=== PATIENT | female | born 1955 | race Caucasian/White ===

== ENCOUNTER 2019-06-23 08:47 | Inpatient (IN) | payer OTHER ==
--- NOTE | 2019-06-23 08:53 | PDOC ---
History of Present Illness - General Stated Complaint: BLOODY DIARRHEA Time Seen by Provider: 06/23/19 08:53 History Source: Patient Exam Limitations: No Limitations - History of Present Illness Initial Comments: 63 year old female with PMH ulcerative colitis, chronic arthritis presented to ED for LLQ pain/Bloody diarrhea since 0200 today. Pt reported she believes her symptoms are 2/2 an UC flare up, and she tried to hydrate at home, but started vomiting and called EMS. Pt reported her LLQ pain is constant, cramping, no alleviating or aggravating factors. Pt reported she had many episodes of diarrhea, and when she stands up from the toilet she begins to feel lightheaded. She denied syncope or fall. She reported she takes percocet for her chronic arthritis. ROS General: denied fever, chills, generalized weakness. HEENT: denied sore throat, rhinorrhea, ear pain. Cardiovascular: admitted to presyncope. denied chest pain, palpitations, syncope , diaphoresis. Respiratory: denied shortness of breath, cough, sputum production, hemoptysis. Gastrointestinal: admitted to abdominal pain, nausea, vomiting, diarrhea, blood in stool. denied constipation. Genitourinary: denied dysuria, increased urinary frequency, hematuria, urinary incontinence, flank pain. Back: denied back pain. Musculoskeletal: denied joint pain, muscle pain, joint swelling. Neurological: denied headache, dizziness, numbness, tingling, weakness. Integumentary: denied rash, laceration, abrasion. Hematologic/Lymphatic: denied bruising or bleeding. PE Constitutional: Well-nourished, Well-developed, appearing stated age. appears in pain. pale. HEENT: head is normocephalic, atraumatic. EOMI. PERRLA. Neck: supple. Full ROM. Cardiovascular: regular heart rhythm. no murmurs. no pericardial friction rub. Respiratory: clear to auscultation bilaterally. no crackles, rhonchi or wheezing. no stridor. Gastrointestinal: soft, diffuse tenderness to palpation, worst in the LLQ. normal bowel sounds. no rebound, guarding, masses. Extremities: peripheral pulses intact. no lower extremity edema. Neurological: CN 2-12 grossly intact. moves all four extremities. Psych: awake, alert, oriented x3. follows commands. answers questions appropriately Past History - Past Medical History Allergies/Adverse Reactions: Allergies Allergy/AdvReac Type Severity Reaction Status Date / Time No Known Allergies Allergy Verified 06/23/19 09:07 Home Medications: Ambulatory Orders Alprazolam 0.125 mg PO HS 06/23/19 Lipase/Protease/Amylase [Zenpep Dr 25,000 Unit Capsule] 1 each PO TID 06/23/19 Lisinopril [Zestril] 40 mg PO DAILY 06/23/19 Mesalamine [Asacol Hd -] 800 mg PO TID 06/23/19 Oxycodone HCl/Acetaminophen [Oxycodone-Acetaminophen 10-325] 1 each PO PRN 06/23 traZODone HCL [Trazodone HCl] 100 mg PO HS 06/23/19 ED Treatment Course - LABORATORY CBC & Chemistry Diagram: 06/23/19 09:20 06/23/19 09:20 Medical Decision Making - Medical Decision Making 63 year old female with above PMH presented to ED for acute LLQ pain, blood diarrhea, nausea/vomiting, presyncope. EMS reported they gave Zofran 4 mg IV once, and started 1L normal saline bolus. Initial Vital Signs Temp Pulse Resp BP Pulse Ox 97.9 F 91 H 18 109/81 99 06/23/19 09:03 06/23/19 09:03 06/23/19 09:03 06/23/19 09:03 06/23/19 09:03 Afebrile. Mild hypotension. No tachycardia. No tachypnea. No hypoxia on room air. Labs ordered: CBC, CMP, mag, phos, blood cultures, UA/UC, lactate, stool for blood Imaging ordered: CXR, CT abdomen/pelvis with IV and PO contrast Medications ordered: normal saline bolus 1000 cc once, tylenol IV EKG performed at 0852: poor quality 2/2 pt motion. regular rhythm. normal axis. rate 84. no acute ST changes noted. 06/23/19 09:37 06/23/19 09:07 Stool Occult Blood Positive 06/23/19 10:42 CBC WBC 11.7 K/mm3 (4.0-10.0) H 06/23/19 09:20 RBC 4.11 M/mm3 (3.60-5.2) 06/23/19 09:20 Hgb 13.1 GM/dL (10.7-15.3) 06/23/19 09:20 Hct 40.1 % (32.4-45.2) D 06/23/19 09:20 MCV 97.6 fl (80-96) H 06/23/19 09:20 MCH 31.9 pg (25.7-33.7) 06/23/19 09:20 MCHC 32.7 g/dl (32.0-36.0) 06/23/19 09:20 RDW 13.7 % (11.6-15.6) 06/23/19 09:20 Plt Count 210 K/MM3 (134-434) 06/23/19 09:20 MPV 8.5 fl (7.5-11.1) 06/23/19 09:20 Absolute Neuts (auto) 10.3 K/mm3 (1.5-8.0) H 06/23/19 09:20 Neutrophils % 87.5 % (42.8-82.8) H 06/23/19 09:20 Lymphocytes % 5.9 % (8-40) L 06/23/19 09:20 Monocytes % 6.0 % (3.8-10.2) 06/23/19 09:20 Eosinophils % 0.2 % (0-4.5) 06/23/19 09:20 Basophils % 0.4 % (0-2.0) 06/23/19 09:20 Nucleated RBC % 0 % (0-0) 06/23/19 09:20 CMP Sodium 142 mmol/L (136-145) 06/23/19 09:20 Potassium 3.9 mmol/L (3.5-5.1) 06/23/19 09:20 Chloride 110 mmol/L (98-107) H 06/23/19 09:20 Carbon Dioxide 24 mmol/L (21-32) 06/23/19 09:20 Anion Gap 8 MMOL/L (8-16) 06/23/19 09:20 BUN 20.1 mg/dL (7-18) H 06/23/19 09:20 Creatinine 1.1 mg/dL (0.55-1.3) 06/23/19 09:20 Est GFR (CKD-EPI)AfAm 61.01 06/23/19 09:20 Est GFR (CKD-EPI)NonAf 52.64 06/23/19 09:20 Random Glucose 125 mg/dL (74-106) H 06/23/19 09:20 Lactic Acid 2.5 mmol/L (0.4-2.0) H* 06/23/19 09:20 Calcium 9.4 mg/dL (8.5-10.1) 06/23/19 09:20 Phosphorus 3.1 mg/dL (2.5-4.9) 06/23/19 09:20 Magnesium 2.3 mg/dL (1.8-2.4) 06/23/19 09:20 Total Bilirubin 0.5 mg/dL (0.2-1) 06/23/19 09:20 AST 42 U/L (15-37) H 06/23/19 09:20 ALT 49 U/L (13-61) 06/23/19 09:20 Alkaline Phosphatase 168 U/L (45-117) H 06/23/19 09:20 Troponin I 0.03 ng/ml (0.00-0.05) 06/23/19 09:20 Total Protein 7.0 g/dl (6.4-8.2) 06/23/19 09:20 Albumin 3.9 g/dl (3.4-5.0) 06/23/19 09:20 Lipase 104 U/L (73-393) 06/23/19 09:20 Lab reported lactate 2.5 -Additional 1L normal saline ordered Pt reported no pain relief with IV Tylenol, last BP 117/43 Medication ordered: Fentanyl 25 mcg once CXR report: Name: [facility] Phys: Keshia Estes RESIDENT : [id number] Age: 63 Sex: F [facility] Acct: [id number] Loc: [address] Exam Date: 06/23/19 Status: REG [place] [id number] Unit Number: [id number] EXAM#: TYPE/EXAM: RESULT: [id number] RAD/CHEST X-RAY PORTABLE* Chest: Sepsis A single AP view of the chest reveals clear well aerated lungs, normal mediastinum and sharp angles. The bones and soft tissues are intact. There are no prior studies for comparison. Impression: No acute chest pathology. Reported By: Elroy Messina MD 06/23/19 1110 06/23/19 12:59 CT report: Name: [facility] Phys: Zachary Naranjo MD : [id number] Age: 63 Sex: F [facility] Acct: [id number] Loc: [address] Exam Date: 06/23/19 Status: [place] [address] Unit Number: [id number] EXAM#: TYPE/EXAM: RESULT: [id number] CT/ABDOMEN PELVIS CT WITH CONTR INDICATION: Ulcerative colitis with abdominal pain TECHNIQUE: Helical images of the abdomen and pelvis obtained with oral and 90 cc Omnipaque 350 IV . COMPARISON IMAGING:None FINDINGS : LUNG BASES:Mild dependent atelectasis seen. LIVER: Negative. GALLBLADDER: Negative. BILIARY DUCTS: Negative. PANCREAS: Negative. SPLEEN: Negative. ADRENALS: Negative. KIDNEYS: Tiny cysts noted lower pole of the right kidney. AORTA: Calcified plaque. No aneurysm. LYMPH NODES: Negative. BOWEL: Oral contrast reaches the transverse colon. There is no evidence of bowel obstruction. Postsurgical clips noted in the region of the cecum suggesting prior appendectomy. Colonic wall thickening is noted starting in the mid transverse colon and extending to the sigmoid colon suggesting colitis. There is no evidence of pneumatosis. No proximal obstruction is seen. No free air/ fluid is identified. No diverticular disease present. PELVIS: The bladder is physiologically distended. The uterus is identified. Possible fundal fibroid is noted measuring 3.2 cm which could be further assessed with ultrasound imaging. OTHER: No aggressive bone lesions seen. Discogenic disease identified. Spondylotic changes are noted. IMPRESSION: COLITIS INVOLVING FROM THE MID TRANSVERSE COLON TO THE DISTAL SIGMOID COLON DISCUSSED ABOVE. NO PNEUMATOSIS IDENTIFIED. NO DRAINABLE FLUID COLLECTIONS ARE SEEN. FOLLOW-UP COLONOSCOPY AFTER THE ACUTE EVENT IS RECOMMENDED. Probable uterine fibroid which could be corroborated with ultrasound imaging as clinically warranted. Additional comments noted above. Reported By: Manuel Mares MD 06/23/19 1246 06/23/19 13:08 Dr. Frank's office paged, they reported that Dr. Dior is learning operations specialist for ED today from their group, but they do not have the number. I called Dr. Dior's office, they reported they will page her. 06/23/19 13:28 Pt signed out to Dr. Dior. Medications ordered: Levaquin 750 mg IV once, Flagyl 500 mg IV once 06/23/19 14:31 Repeat Lactate 2.0 Pt in pain. Medications ordered: Fentanyl 25 mcg once Discharge - Discharge Information Problems reviewed: Yes Clinical Impression/Diagnosis: Ulcerative colitis, Lactic acidosis Condition: Stable - Admission Yes - Follow up/Referral - Patient Discharge Instructions - Post Discharge Activity
[2019-06-23] MEDS ORDERED: ONDANSETRON 4 MG/2 ML VIAL ONE (09:00)
[2019-06-23] MEDS ORDERED: fentaNYL CITRATE 250 MCG/5 ML VIAL IVPUSH ONE ×3 (09:16→14:00)
[2019-06-23] MEDS ORDERED: ACETAMINOPHEN 1000 MG/100 ML VIAL (NON FORMULARY) IVPB ONE (09:18)
[2019-06-23] MEDS ORDERED: ACETAMINOPHEN INJECTION 100 ML IVPB ONE (09:36)
[2019-06-23 09:42] LABS: BASO % 0.4 % (0-2.0); EOS % 0.2 % (0-4.5); HEMATOCRIT 40.1 % (32.4-45.2); HEMOGLOBIN 13.1 GM/dL (10.7-15.3); LYMPH % 5.9 % (8-40); MCH 31.9 pg (25.7-33.7); MCHC 32.7 g/dl (32.0-36.0); MEAN CELL VOLUME 97.6 fl (80-96); MEAN PLT VOLUME 8.5 fl (7.5-11.1); NEUT % 87.5 % (42.8-82.8); PLATELET COUNT 210 K/MM3 (134-434); RBC 4.11 M/mm3 (3.60-5.2); RDW 13.7 % (11.6-15.6); WHITE BLOOD COUNT 11.7 K/mm3 (4.0-10.0)
[2019-06-23 09:51] LABS: INR 1.02 (0.83-1.09)
[2019-06-23 09:53] LABS: VENOUS PH 7.26 (7.31-7.41)
[2019-06-23 09:59] LABS: VENOUS PO2 < 49 mmHg (28-48)
[2019-06-23 10:14] LABS: ALBUMIN 3.9 g/dl (3.4-5.0); BILIRUBIN,TOTAL 0.5 mg/dL (0.2-1); BLOOD UREA NITROGEN 20.1 mg/dL (7-18); CALCIUM 9.4 mg/dL (8.5-10.1); CREATININE 1.1 mg/dL (0.55-1.3); PHOSPHOROUS 3.1 mg/dL (2.5-4.9); POTASSIUM 3.9 mmol/L (3.5-5.1)
[2019-06-23] MEDS ORDERED: SODIUM CHLORIDE 1,000 ML IV STA (10:42)
--- NOTE | 2019-06-23 14:51 | HP ---
Admitting History and Physical - Admission Chief Complaint: cramping abdominal pain and bloody stools History of Present Illness: 63 year old female with PMH ulcerative colitis, chronic arthritis presented to ED for LLQ pain/Bloody diarrhea since 0200 today. Pt reported she believes her symptoms are 2/2 an UC flare up, and she tried to hydrate at home, but started vomiting and called EMS. Pt reported her LLQ pain is constant, cramping, no alleviating or aggravating factors. Pt reported she had many episodes of diarrhea, and when she stands up from the toilet she begins to feel lightheaded. She denied syncope or fall. She reported she takes percocet for her chronic arthritis. - Smoking History Smoking history: Never smoked - Alcohol/Substance Use Hx Alcohol Use: No Home Medications - Allergies Allergies/Adverse Reactions: Allergies Allergy/AdvReac Type Severity Reaction Status Date / Time No Known Allergies Allergy Verified 06/23/19 09:07 - Home Medications Home Medications: Ambulatory Orders Alprazolam 0.125 mg PO HS 06/23/19 Lipase/Protease/Amylase [Zenpep Dr 25,000 Unit Capsule] 1 each PO TID 06/23/19 Lisinopril [Zestril] 40 mg PO DAILY 06/23/19 Mesalamine [Asacol Hd -] 800 mg PO TID 06/23/19 Oxycodone HCl/Acetaminophen [Oxycodone-Acetaminophen 10-325] 1 each PO PRN 06/23 traZODone HCL [Trazodone HCl] 100 mg PO HS 06/23/19 Review of Systems - Review of Systems Gastrointestinal: reports: Abdominal Pain, Other (bloody lose bm) Physical Examination Vital Signs: Vital Signs Temperature 99.3 F 06/23/19 13:12 Pulse Rate 88 06/23/19 13:12 Respiratory Rate 17 06/23/19 13:12 Blood Pressure 105/64 06/23/19 13:12 O2 Sat by Pulse Oximetry (%) 98 06/23/19 13:12 Constitutional: Yes: Mild Distress Cardiovascular: Yes: Regular Rate and Rhythm, S1, S2 Respiratory: Yes: CTA Bilaterally Gastrointestinal: Yes: Tenderness (in LLQ) Edema: No Neurological: Yes: Alert Labs: CBC, BMP 06/23/19 09:20 06/23/19 09:20 Imaging - Results Cat Scan: Report Reviewed (colitis of mid tranverse to the distal sigmoid colon) Problem List - Problems (1) Ulcerative colitis Assessment/Plan: ivf solumedrol q8rh flagyl rocephin stool cultures,OP, c diff- r/o infectious vs UC flare GI consult pain control Code(s): K51.90 - ULCERATIVE COLITIS, UNSPECIFIED, WITHOUT COMPLICATIONS (2) Lactic acidosis Assessment/Plan: resolved with hydration Code(s): E87.2 - ACIDOSIS
[2019-06-23] MEDS ORDERED: CEFTRIAXONE 1 GM in DEXTROSE 5%-WATER - 50 ML IVPB ONE (14:54)
[2019-06-23] MEDS ORDERED: ACETAMINOPHEN 1000 MG/100 ML VIAL (NON FORMULARY) IVPB PRN (15:01)
--- NOTE | 2019-06-23 15:39 | PDOC ---
Attending Attestation - Resident Resident Name: Keshia Estes - ED Attending Attestation I have performed the following: I have examined & evaluated the patient, The case was reviewed & discussed with the resident, I agree w/resident's findings & plan, Exceptions are as noted - HPI HPI: 06/23/19 15:35 63 year old female with PMH ulcerative colitis, chronic arthritis presented to ED with left-sided abdominal discomfort associated with bloody diarrhea symptoms are consistent with previous uc flares - Physicial Exam PE: 06/23/19 15:36 Vitals: Triage Vital signs reviewed General Appearance: Mild distress, well nourished well developed, Head: Atraumatic, Chest Wall: Nontender Cardiac: Regular rate and rhythym, no murmurs, no rubs, no gallops, Lungs: Clear to auscultation bilateral, good air movement bilaterally, Abdomen: Soft, non distended, normal bowel sounds, left-sided abdominal tender to palpation Extremities: Full range of motion to all extremities, no cyanosis, clubbing, or edema Skin: Warm and dry, no rashes or lesions, no rash, no petechiae Psych: Normal mood, normal affect - Medical Decision Making 06/23/19 15:[address] evidence of Crohn's flare. Given bloody bowel movements and elevated lactic there is evidence of hypoperfusion patient will require admission for IV antibiotics hydration and further management as well as GI consultation
[2019-06-23] MEDS ORDERED: cefTRIAXone SODIUM 1 GM VIAL ONE (18:08)
[2019-06-23] MEDS ORDERED: DEXTROSE 5%-WATER - 50 ML IVPB ONE (18:09)
[2019-06-23] MEDS: SODIUM CHLORIDE 1,000 ML IV SCH (18:30)
[2019-06-23] MEDS: methylPREDNISolone NA SUCC 40 MG/1 ML VIAL IVPUSH SCH (18:31)
[2019-06-23] MEDS ORDERED: traMADol HCL 50 MG TABLET PO ONE (20:05)
[2019-06-24] MEDS: ACETAMINOPHEN 325 MG TABLET (FP) PO PRN ×2 (02:20→13:06)
[2019-06-24] MEDS: methylPREDNISolone NA SUCC 40 MG/1 ML VIAL IVPUSH SCH ×3 (02:20→17:16)
[2019-06-24 03:07] LABS: URINE APPEARANCE CLEAR; URINE BILIRUBIN NEGATIVE (NEGATIVE); URINE COLOR YELLOW; URINE GLUCOSE (UA) NEGATIVE (NEGATIVE); URINE KETONE TRACE (NEGATIVE); URINE LEUK ESTERASE NEGATIVE (NEGATIVE); URINE NITRITE NEGATIVE (NEGATIVE); URINE PROTEIN NEGATIVE (NEGATIVE); URINE UROBILINOGEN 0.2 mg/dL (0.2-1.0)
[2019-06-24] MEDS: traMADol HCL 50 MG TABLET PO PRN ×3 (06:27→20:42)
[2019-06-24] MEDS: SODIUM CHLORIDE 1,000 ML IV SCH ×3 (06:28→17:17)
--- NOTE | 2019-06-24 07:38 | PN ---
Progress Note, Physician Chief Complaint: Ulcerative Colitis History of Present Illness: NAD, feels better than yesterday still has some abdominal pain Diarrhea once this AM with tarry stool tolerating clear liquid diet - Current Medication List Current Medications: Active Medications Acetaminophen (Tylenol -) 650 mg PO Q6H PRN PRN Reason: PAIN LEVEL 1-5 Last Admin: 06/24/19 02:20 Dose: 650 mg Sodium Chloride (Normal Saline -) 1,000 mls @ 100 mls/hr IV ASDIR LUIS Last Admin: 06/24/19 06:28 Dose: 100 mls/hr Metronidazole (Flagyl 500mg Premixed Ivpb -) 500 mg in 100 mls @ 100 mls/hr IVPB Q8H-IV LUIS Last Admin: 06/24/19 02:21 Dose: 100 mls/hr Ceftriaxone Sodium 1 gm/ (Dextrose) 50 mls @ 200 mls/hr IVPB DAILY [facility]; Protocol Methylprednisolone Sodium Succinate (Solu-Medrol -) 40 mg IVPUSH Q8H-IV LUIS Last Admin: 06/24/19 02:20 Dose: 40 mg Tramadol HCl (Ultram -) 50 mg PO Q6H PRN PRN Reason: PAIN LEVEL 6-10 Last Admin: 06/24/19 06:27 Dose: 50 mg - Objective Vital Signs: Vital Signs Temperature 98.1 F 06/24/19 06:00 Pulse Rate 90 06/24/19 06:00 Respiratory Rate 18 06/24/19 06:00 Blood Pressure 123/67 06/24/19 06:00 O2 Sat by Pulse Oximetry (%) 96 06/23/19 21:00 Constitutional: Yes: Well Nourished, No Distress, Calm Cardiovascular: Yes: Regular Rate and Rhythm Respiratory: Yes: Regular Gastrointestinal: Yes: Soft, Hyperactive Bowel Sounds, Tenderness (LLQ,LUQ) Genitourinary: Yes: WNL Musculoskeletal: Yes: WNL Extremities: Yes: WNL Edema: No Peripheral Pulses WNL: Yes Neurological: Yes: Alert, Oriented Psychiatric: Yes: Alert, Oriented Labs: INR, PTT INR 1.02 (0.83-1.09) 06/23/19 09:20 Assessment/Plan (1) Ulcerative colitis Assessment/Plan: -Continue IVF -solumedrol q8rh -flagyl IV -rocephin IV -stool cultures,OP, c diff- r/o infectious vs UC flare-pending -GI consult -pain control Code(s): K51.90 - ULCERATIVE COLITIS, UNSPECIFIED, WITHOUT COMPLICATIONS (2) Lactic acidosis Assessment/Plan: -resolved with hydration Code(s): E87.2 - ACIDOSIS
[2019-06-24 08:08] LABS: HEMATOCRIT 33.9 % (32.4-45.2); HEMOGLOBIN 11.5 GM/dL (10.7-15.3); MCH 32.8 pg (25.7-33.7); MCHC 33.8 g/dl (32.0-36.0); MEAN CELL VOLUME 97.1 fl (80-96); MEAN PLT VOLUME 8.7 fl (7.5-11.1); PLATELET COUNT 173 K/MM3 (134-434); RBC 3.49 M/mm3 (3.60-5.2); RDW 13.5 % (11.6-15.6); WHITE BLOOD COUNT 8.1 K/mm3 (4.0-10.0)
[2019-06-24 08:36] LABS: ALBUMIN 3.4 g/dl (3.4-5.0); BILIRUBIN,TOTAL 0.4 mg/dL (0.2-1); BLOOD UREA NITROGEN 13.6 mg/dL (7-18); CALCIUM 8.7 mg/dL (8.5-10.1); CREATININE 0.7 mg/dL (0.55-1.3); MAGNESIUM 2.3 mg/dL (1.8-2.4); PHOSPHOROUS 3.5 mg/dL (2.5-4.9); POTASSIUM 4.3 mmol/L (3.5-5.1); TOT PROT 6.3 g/dl (6.4-8.2)
[2019-06-24] MEDS ORDERED: DEXTROSE 5%-WATER - 50 ML IVPB ONE (10:50)
[2019-06-24] MEDS ORDERED: cefTRIAXone SODIUM 1 GM VIAL ONE (10:50)
[2019-06-24] MEDS: CEFTRIAXONE 1 GM in DEXTROSE 5%-WATER - 50 ML IVPB SCH (10:55)
[2019-06-24] MEDS: traZODone HCL 100 MG TABLET (FP) PO SCH (21:18)
[2019-06-24] MEDS ORDERED: ALPRAZolam 0.25 MG TABLET PO SCH (22:00)
[2019-06-25] MEDS: methylPREDNISolone NA SUCC 40 MG/1 ML VIAL IVPUSH SCH ×3 (01:32→18:13)
[2019-06-25] MEDS: traMADol HCL 50 MG TABLET PO PRN ×3 (06:10→22:45)
[2019-06-25 07:31] LABS: BASO % 0.1 % (0-2.0); HEMATOCRIT 32.1 % (32.4-45.2); HEMOGLOBIN 10.9 GM/dL (10.7-15.3); LYMPH % 7.7 % (8-40); MCH 32.8 pg (25.7-33.7); MEAN CELL VOLUME 96.3 fl (80-96); MEAN PLT VOLUME 8.7 fl (7.5-11.1); MONO % 3.3 % (3.8-10.2); NEUT % 88.9 % (42.8-82.8); PLATELET COUNT 183 K/MM3 (134-434); RBC 3.33 M/mm3 (3.60-5.2); WHITE BLOOD COUNT 8.3 K/mm3 (4.0-10.0)
[2019-06-25 07:48] LABS: ALBUMIN 3.4 g/dl (3.4-5.0); BILIRUBIN,TOTAL 0.2 mg/dL (0.2-1); BLOOD UREA NITROGEN 12.8 mg/dL (7-18); CALCIUM 8.4 mg/dL (8.5-10.1); CREATININE 0.7 mg/dL (0.55-1.3); POTASSIUM 3.9 mmol/L (3.5-5.1); TOT PROT 6.3 g/dl (6.4-8.2)
[2019-06-25] MEDS ORDERED: cefTRIAXone SODIUM 1 GM VIAL ONE (09:22)
[2019-06-25] MEDS ORDERED: DEXTROSE 5%-WATER - 50 ML IVPB ONE (09:22)
--- NOTE | 2019-06-25 09:24 | PN ---
Progress Note, Physician Chief Complaint: Ulcerative Colitis History of Present Illness: NAD, feels better than yesterday still has some abdominal pain Non bloody stool once this AM, tolerating clear liquid diet - Current Medication List Current Medications: Active Medications Acetaminophen (Tylenol -) 650 mg PO Q6H PRN PRN Reason: PAIN LEVEL 1-5 Last Admin: 06/24/19 13:06 Dose: 650 mg Alprazolam (Xanax -) 0.125 mg PO HS LUIS Last Admin: 06/24/19 21:18 Dose: 0.125 mg Sodium Chloride (Normal Saline -) 1,000 mls @ 100 mls/hr IV ASDIR LUIS Last Admin: 06/24/19 17:17 Dose: 100 mls/hr Metronidazole (Flagyl 500mg Premixed Ivpb -) 500 mg in 100 mls @ 100 mls/hr IVPB Q8H-IV LUIS Last Admin: 06/25/19 01:32 Dose: 100 mls/hr Ceftriaxone Sodium 1 gm/ (Dextrose) 50 mls @ 200 mls/hr IVPB DAILY [facility]; Protocol Last Admin: 06/24/19 10:55 Dose: 200 mls/hr Lisinopril (Prinivil) 5 mg PO DAILY LUIS Methylprednisolone Sodium Succinate (Solu-Medrol -) 40 mg IVPUSH Q8H-IV LUIS Last Admin: 06/25/19 01:32 Dose: 40 mg Tramadol HCl (Ultram -) 50 mg PO Q6H PRN PRN Reason: PAIN LEVEL 6-10 Last Admin: 06/25/19 06:10 Dose: 50 mg Trazodone HCl (Desyrel -) 100 mg PO HS [facility] Last Admin: 06/24/19 21:18 Dose: 100 mg - Objective Vital Signs: Vital Signs Temperature 98.6 F 06/25/19 08:38 Pulse Rate 77 06/25/19 08:38 Respiratory Rate 18 06/25/19 08:38 Blood Pressure 132/64 06/25/19 08:38 O2 Sat by Pulse Oximetry (%) 96 06/24/19 21:00 Constitutional: Yes: Well Nourished, No Distress, Calm Cardiovascular: Yes: Regular Rate and Rhythm Respiratory: Yes: Regular Gastrointestinal: Yes: Normal Bowel Sounds, Soft, Tenderness (diffuse) Genitourinary: Yes: WNL Musculoskeletal: Yes: WNL Extremities: Yes: WNL Edema: No Peripheral Pulses WNL: Yes Neurological: Yes: Alert, Oriented Psychiatric: Yes: Alert, Oriented Labs: CBC, BMP 06/25/19 06:40 06/25/19 06:40 INR, PTT INR 1.02 (0.83-1.09) 06/23/19 09:20 Assessment/Plan (1) Ulcerative colitis Assessment/Plan: -Continue IVF -solumedrol q8rh -flagyl IV -rocephin IV -stool cultures,OP, c diff- r/o infectious vs UC flare-pending -GI consult -pain control -Continue clear liquids for now, may transition to full liquids in AM if pain is improved -Add PPI Code(s): K51.90 - ULCERATIVE COLITIS, UNSPECIFIED, WITHOUT COMPLICATIONS (2) Lactic acidosis Assessment/Plan: -resolved with hydration Code(s): E87.2 - ACIDOSIS
[2019-06-25] MEDS: LISINOPRIL 5 MG TABLET (FP) PO SCH (09:50)
[2019-06-25] MEDS: PANTOPRAZOLE 40 MG TABLET (FP) PO SCH (09:50)
[2019-06-25] MEDS: CEFTRIAXONE 1 GM in DEXTROSE 5%-WATER - 50 ML IVPB SCH (09:51)
[2019-06-25 11:59] VITALS: BMI 20.3
[2019-06-25] MEDS: SODIUM CHLORIDE 1,000 ML IV SCH (16:24)
[2019-06-25] MEDS: ACETAMINOPHEN 325 MG TABLET (FP) PO PRN ×2 (16:24→22:46)
[2019-06-25] MEDS ORDERED: PT OWN MED DRAWER 7, Y5N ONE (18:06)
--- NOTE | 2019-06-25 20:29 | EKG ---
Test Reason : Blood Pressure : / mmHG Vent. Rate : 084 BPM Atrial Rate : 084 BPM P-R Int : 144 ms QRS Dur : 058 ms QT Int : 472 ms P-R-T Axes : 064 065 079 degrees QTc Int : 557 ms POOR DATA QUALITY, INTERPRETATION MAY BE ADVERSELY AFFECTED NORMAL SINUS RHYTHM NONSPECIFIC T WAVE ABNORMALITY ABNORMAL ECG NO PREVIOUS ECGS AVAILABLE Confirmed by TITO CHICAS MD ([id number]) on 06/25/2019 8:28:49 PM Referred By: Confirmed By:TITO CHICAS MD
[2019-06-25] MEDS: traZODone HCL 100 MG TABLET (FP) PO SCH (21:09)
[2019-06-25] MEDS: ALPRAZolam 0.25 MG TABLET PO SCH (21:09)
[2019-06-26] MEDS: methylPREDNISolone NA SUCC 40 MG/1 ML VIAL IVPUSH SCH ×3 (01:03→17:13)
--- NOTE | 2019-06-26 08:33 | CON.GI ---
Consult Consult Specialty:: GI Referred by:: Dr Esperanza Dior Reason for Consultation:: LLQ pain with bloody diarrhea - History of Present Illness History of Present Illness: Patient is a 63 y/o female with past medical history of Uclerative Colitis and Chronic Arthritis. Patient states at 2am on Wednesday she was awakened by a sharp/ throbbing/cramping pain to LLQ after the pain began she states having a BM which was formed. She states as the day progressed her BM changed to non- bloody diarrhea. She denies recent travel, antibiotic use, fever. Abdominal CT scan shows colitis involving from the mild transverse colon to the distal sigmoid colon, no pneumatosis, no drainable fluid collections. Patient has been taking Asacol TID at home as part of medication regimen. - History Source History Provided By: Patient Limitations to Obtaining History: No Limitations - Past Medical History Gastrointestinal: Yes: Ulcerative Colitis ...: No Musculoskeletal: Yes: Osteoarthritis - Alcohol/Substance Use Hx Alcohol Use: No - Smoking History Smoking history: Never smoked If you are a former smoker, when did you quit?: 15 yrs ago - Social History Usual Living Arrangement: With Spouse ADL: Independent History of Recent Travel: No Home Medications - Allergies Allergies/Adverse Reactions: Allergies Allergy/AdvReac Type Severity Reaction Status Date / Time No Known Allergies Allergy Verified 06/23/19 09:07 - Home Medications Home Medications: Ambulatory Orders Alprazolam 0.125 mg PO HS 06/23/19 Lipase/Protease/Amylase [Zenpep Dr 25,000 Unit Capsule] 1 each PO TID 06/23/19 Lisinopril [Zestril] 40 mg PO DAILY 06/23/19 Mesalamine [Asacol Hd -] 800 mg PO TID 06/23/19 Oxycodone HCl/Acetaminophen [Oxycodone-Acetaminophen 10-325] 1 each PO PRN 06/23 traZODone HCL [Trazodone HCl] 100 mg PO HS 06/23/19 Review of Systems - Review of Systems Constitutional: reports: Loss of Appetite, Weakness Eyes: reports: No Symptoms HENT: reports: No Symptoms Neck: reports: No Symptoms Cardiovascular: reports: No Symptoms Respiratory: reports: No Symptoms Gastrointestinal: reports: Abdominal Pain, Diarrhea, Nausea, Rectal Bleeding Genitourinary: reports: No Symptoms Breasts: reports: No Symptoms Reported Musculoskeletal: reports: No Symptoms Integumentary: reports: No Symptoms Neurological: reports: No Symptoms Endocrine: reports: No Symptoms Hematology/Lymphatic: reports: No Symptoms Psychiatric: reports: No Symptoms Physical Exam-GI Vital Signs: Vital Signs Temperature 98 F 06/26/19 07:00 Pulse Rate 97 H 06/26/19 07:00 Respiratory Rate 20 06/26/19 07:00 Blood Pressure 140/71 06/26/19 07:00 O2 Sat by Pulse Oximetry (%) 96 06/25/19 21:00 Constitutional: Yes: No Distress, Calm, Thin Eyes: Yes: Conjunctiva Clear HENT: Yes: Atraumatic Cardiovascular: Yes: Regular Rate and Rhythm Respiratory: Yes: Regular, CTA Bilaterally Gastrointestinal Inspection: Yes: WNL. No: Ascites, Distention, Hernia, Scars, Other ...Auscultate: Yes: Normoactive Bowel Sounds. No: Hyperactive Bowel Sounds, Hypoactive Bowel Sounds, No Bowel Sounds, Other ...Palpate: Yes: Tenderness (diffuse but noted most in LLQ). No: Firm/Rigid, Guarding, Hepatomegaly, Mass, Pulsatile Mass, Soft, Splenomegaly, Tenderness, Epigastium, Tenderness, Rebound, Other ...Percussion: Yes: Tympanitic. No: Dullness, Fluid Wave, Other Neurological: Yes: Alert, Oriented Psychiatric: Yes: Alert, Oriented Labs: CBC, BMP 06/25/19 06:40 06/25/19 06:40 INR, PTT INR 1.02 (0.83-1.09) 06/23/19 09:20 Imaging - Results Cat Scan: Report Reviewed Problem List - Problems (1) Ulcerative colitis Assessment/Plan: >Stool Calpoprectin ordered >started back on Asacol TID >Stool WBC and C-diff neg, stool culture pending >Ceftriaxone and Flagyl >IV hydration >will advance diet to low fiber, lactose free when abdominal pain improves Code(s): K51.90 - ULCERATIVE COLITIS, UNSPECIFIED, WITHOUT COMPLICATIONS
[2019-06-26] MEDS ORDERED: cefTRIAXone SODIUM 1 GM VIAL ONE (09:17)
[2019-06-26] MEDS ORDERED: DEXTROSE 5%-WATER - 50 ML IVPB ONE (09:17)
--- NOTE | 2019-06-26 10:07 | PN ---
Progress Note, Physician Chief Complaint: Ulcerative Colitis History of Present Illness: Previous notes and events reviewed awake and alert NAD complain of LLQ pain improving denies bloody diarrhea - Current Medication List Current Medications: Active Medications Acetaminophen (Tylenol -) 650 mg PO Q6H PRN PRN Reason: PAIN LEVEL 1-5 Last Admin: 06/25/19 22:46 Dose: 650 mg Alprazolam (Xanax -) 0.5 mg PO HS [facility]IS Last Admin: 06/25/19 21:09 Dose: 0.5 mg Sodium Chloride (Normal Saline -) 1,000 mls @ 100 mls/hr IV ASDIR [facility]IS Last Admin: 06/25/19 16:24 Dose: 100 mls/hr Metronidazole (Flagyl 500mg Premixed Ivpb -) 500 mg in 100 mls @ 100 mls/hr IVPB Q8H-IV [facility] Last Admin: 06/26/19 01:03 Dose: 100 mls/hr Ceftriaxone Sodium 1 gm/ (Dextrose) 50 mls @ 200 mls/hr IVPB DAILY [facility]IS; Protocol Last Admin: 06/25/19 09:51 Dose: 200 mls/hr Lisinopril (Prinivil) 5 mg PO DAILY [facility] Last Admin: 06/25/19 09:50 Dose: 5 mg Mesalamine (Asacol Hd -) 800 mg PO TID [facility] Methylprednisolone Sodium Succinate (Solu-Medrol -) 40 mg IVPUSH Q8H-IV [facility]IS Last Admin: 06/26/19 01:03 Dose: 40 mg Pantoprazole Sodium (Protonix -) 40 mg PO DAILY [facility] Last Admin: 06/25/19 09:50 Dose: 40 mg Tramadol HCl (Ultram -) 50 mg PO Q6H PRN PRN Reason: PAIN LEVEL 6-10 Last Admin: 06/25/19 22:45 Dose: 50 mg Trazodone HCl (Desyrel -) 100 mg PO HS [facility] Last Admin: 06/25/19 21:09 Dose: 100 mg - Objective Vital Signs: Vital Signs Temperature 98 F 06/26/19 07:00 Pulse Rate 97 H 06/26/19 07:00 Respiratory Rate 20 06/26/19 07:00 Blood Pressure 140/71 06/26/19 07:00 O2 Sat by Pulse Oximetry (%) 96 06/25/19 21:00 Constitutional: Yes: No Distress, Calm Eyes: Yes: Conjunctiva Clear HENT: Yes: Atraumatic Cardiovascular: Yes: Regular Rate and Rhythm Respiratory: Yes: Regular, CTA Bilaterally Gastrointestinal: Yes: Normal Bowel Sounds, Soft, Tenderness (llq) Musculoskeletal: Yes: Muscle Weakness Extremities: Yes: WNL Edema: No Neurological: Yes: Alert, Oriented Psychiatric: Yes: Alert, Oriented Labs: CBC, BMP 06/25/19 06:40 06/25/19 06:40 INR, PTT INR 1.02 (0.83-1.09) 06/23/19 09:20 Problem List - Problems (1) Arthritis Assessment/Plan: -pain control -ESR 8 Code(s): M19.90 - UNSPECIFIED OSTEOARTHRITIS, UNSPECIFIED SITE (2) Ulcerative colitis Assessment/Plan: -GI on board -IV hydration -Ceftriaxone, Flagyl -Solumedrol -stool o&p and stool culture pending -cdiff neg stool wbc neg -Asacol Code(s): K51.90 - ULCERATIVE COLITIS, UNSPECIFIED, WITHOUT COMPLICATIONS (3) Lactic acidosis Assessment/Plan: -resolved -LA 2.5~2.0 Code(s): E87.2 - ACIDOSIS Assessment/Plan see problem list
[2019-06-26] MEDS: LISINOPRIL 5 MG TABLET (FP) PO SCH (10:41)
[2019-06-26] MEDS: PANTOPRAZOLE 40 MG TABLET (FP) PO SCH (10:41)
[2019-06-26] MEDS: CEFTRIAXONE 1 GM in DEXTROSE 5%-WATER - 50 ML IVPB SCH (10:42)
[2019-06-26] MEDS: traMADol HCL 50 MG TABLET PO PRN ×2 (10:42→21:26)
[2019-06-26] MEDS ORDERED: PT OWN MED DRAWER 7, Y5N ONE ×2 (13:11→18:51)
[2019-06-26] MEDS: MESALAMINE 800 MG TABLET.DR PO SCH ×2 (14:13→21:27)
[2019-06-26] MEDS: SODIUM CHLORIDE 1,000 ML IV SCH (17:49)
[2019-06-26] MEDS: traZODone HCL 100 MG TABLET (FP) PO SCH (21:25)
[2019-06-26] MEDS: ALPRAZolam 0.25 MG TABLET PO SCH (21:25)
[2019-06-26] MEDS: ACETAMINOPHEN 325 MG TABLET (FP) PO PRN (21:26)
[2019-06-27] MEDS: methylPREDNISolone NA SUCC 40 MG/1 ML VIAL IVPUSH SCH ×3 (01:26→17:04)
[2019-06-27] MEDS: traMADol HCL 50 MG TABLET PO PRN ×2 (06:21→14:52)
[2019-06-27] MEDS: MESALAMINE 800 MG TABLET.DR PO SCH ×3 (06:22→21:52)
--- NOTE | 2019-06-27 07:38 | PN.GI ---
GI Progress Note Subjective: Patient states abdominal pain is improved. Continues with loose stools but denies rectal bleeding. Denies nausea, vomiting, or melena. - Objective Vital Signs: Vital Signs Temperature 97.7 F 06/27/19 05:56 Pulse Rate 74 06/27/19 05:56 Respiratory Rate 20 06/27/19 05:56 Blood Pressure 134/75 06/27/19 05:56 O2 Sat by Pulse Oximetry (%) 96 06/25/19 21:00 Constitutional: No Distress, Calm Eyes: Yes: Conjunctiva Clear HENT: Yes: Atraumatic Cardiovascular: Yes: Regular Rate and Rhythm Respiratory: Yes: Regular, CTA Bilaterally Gastrointestinal Inspection: Yes: WNL. No: Ascites, Distention, Hernia, Scars, Other ...Auscultate: Yes: Normoactive Bowel Sounds. No: Hyperactive Bowel Sounds, Hypoactive Bowel Sounds, No Bowel Sounds, Other ...Palpate: Yes: Soft, Tenderness (mild llq). No: Firm/Rigid, Guarding, Hepatomegaly, Mass, Pulsatile Mass, Splenomegaly, Tenderness, Epigastium, Tenderness, Rebound, Other ...Percussion: Yes: Tympanitic. No: Dullness, Fluid Wave, Other Neurological: Yes: Alert, Oriented Psychiatric: Yes: Alert, Oriented Labs: CBC, BMP 06/25/19 06:40 06/25/19 06:40 INR, PTT INR 1.02 (0.83-1.09) 06/23/19 09:20 Active Medications Generic Name Dose Route Start Last Admin Trade Name Freq PRN Reason Stop Dose Admin Acetaminophen 650 mg 06/24/19 01:42 06/26/19 21:26 Tylenol - PO 650 mg Q6H PRN Administration PAIN LEVEL 1-5 Alprazolam 0.5 mg 06/25/19 22:00 06/26/19 21:25 Xanax - PO 0.5 mg HS LUIS Administration Sodium Chloride 1,000 mls @ 100 mls/hr 06/23/19 15:00 06/26/19 17:49 Normal Saline - IV 100 mls/hr ASDIR LUIS Administration Metronidazole 500 mg in 100 mls @ 100 mls/hr 06/23/19 18:00 06/27/19 01:26 Flagyl 500mg Premixed Ivpb - IVPB 100 mls/hr Q8H-IV [facility] Administration Ceftriaxone Sodium 1 gm/ 50 mls @ 200 mls/hr 06/24/19 10:00 06/26/19 10:42 Dextrose IVPB 200 mls/hr DAILY [facility]IS Administration Protocol Lisinopril 5 mg 06/25/19 10:00 06/26/19 10:41 Prinivil PO 5 mg DAILY [facility]IS Administration Mesalamine 800 mg 06/26/19 14:00 06/27/19 06:22 Asacol Hd - PO 800 mg TID LUSI Administration Methylprednisolone Sodium Succinate 40 mg 06/23/19 18:00 06/27/19 01:26 Solu-Medrol - IVPUSH 40 mg Q8H-IV [facility]IS Administration Pantoprazole Sodium 40 mg 06/25/19 10:00 06/26/19 10:41 Protonix - PO 40 mg DAILY [facility] Administration Tramadol HCl 50 mg 06/24/19 01:35 06/27/19 06:21 Ultram - PO 50 mg Q6H PRN Administration PAIN LEVEL 6-10 Trazodone HCl 100 mg 06/24/19 22:00 06/26/19 21:25 Desyrel - PO 100 mg HS LUIS Administration Problem List - Problems (1) Ulcerative colitis Assessment/Plan: >Stool Calpoprectin ordered >started back on Asacol TID >Stool WBC and C-diff neg, stool culture neg >Ceftriaxone and Flagyl >IV hydration >advance diet to low fiber, lactose free Code(s): K51.90 - ULCERATIVE COLITIS, UNSPECIFIED, WITHOUT COMPLICATIONS
[2019-06-27 09:13] LABS: HEMOGLOBIN 11.2 GM/dL (10.7-15.3); MCH 32.7 pg (25.7-33.7); MEAN CELL VOLUME 96.1 fl (80-96); MEAN PLT VOLUME 8.1 fl (7.5-11.1); PLATELET COUNT 203 K/MM3 (134-434); RBC 3.43 M/mm3 (3.60-5.2); RDW 13.7 % (11.6-15.6)
[2019-06-27] MEDS ORDERED: cefTRIAXone SODIUM 1 GM VIAL ONE (09:36)
[2019-06-27] MEDS ORDERED: PT OWN MED DRAWER 7, Y5N ONE ×2 (09:36→21:05)
[2019-06-27] MEDS ORDERED: DEXTROSE 5%-WATER - 50 ML IVPB ONE (09:36)
[2019-06-27 09:43] LABS: ALBUMIN 3.3 g/dl (3.4-5.0); BILIRUBIN,TOTAL 0.3 mg/dL (0.2-1); BLOOD UREA NITROGEN 11.8 mg/dL (7-18); CALCIUM 8.3 mg/dL (8.5-10.1); CREATININE 0.6 mg/dL (0.55-1.3); POTASSIUM 3.2 mmol/L (3.5-5.1); TOT PROT 6.3 g/dl (6.4-8.2)
[2019-06-27] MEDS: PANTOPRAZOLE 40 MG TABLET (FP) PO SCH (09:44)
[2019-06-27] MEDS: LISINOPRIL 5 MG TABLET (FP) PO SCH (09:44)
[2019-06-27] MEDS: CEFTRIAXONE 1 GM in DEXTROSE 5%-WATER - 50 ML IVPB SCH (09:45)
--- NOTE | 2019-06-27 12:22 | DS ---
Physical Examination Vital Signs: Vital Signs Temperature 98.1 F 06/27/19 09:22 Pulse Rate 86 06/27/19 09:22 Respiratory Rate 18 06/27/19 09:22 Blood Pressure 131/63 06/27/19 09:22 O2 Sat by Pulse Oximetry (%) 96 06/27/19 09:22 Findings/Remarks: Laboratory Results - last 24 hr 06/27/19 06/27/19 07:55 07:55 WBC 5.0 RBC 3.43 L Hgb 11.2 Hct 33.0 MCV 96.1 H MCH 32.7 MCHC 34.0 RDW 13.7 Plt Count 203 MPV 8.1 Sodium 142 Potassium 3.2 L Chloride 110 H Carbon Dioxide 25 Anion Gap 7 L BUN 11.8 Creatinine 0.6 Est GFR (CKD-EPI)AfAm 110.86 Est GFR (CKD-EPI)NonAf 95.65 Random Glucose 96 Calcium 8.3 L Total Bilirubin 0.3 AST 26 ALT 43 Alkaline Phosphatase 61 Total Protein 6.3 L Albumin 3.3 L Active Medications Generic Name Dose Route Start Last Admin Trade Name Freq PRN Reason Stop Dose Admin Acetaminophen 650 mg 06/24/19 01:42 06/26/19 21:26 Tylenol - PO 650 mg Q6H PRN Administration PAIN LEVEL 1-5 Alprazolam 0.5 mg 06/25/19 22:00 06/26/19 21:25 Xanax - PO 0.5 mg HS LUIS Administration Sodium Chloride 1,000 mls @ 100 mls/hr 06/23/19 15:00 06/26/19 17:49 Normal Saline - IV 100 mls/hr ASDIR LUIS Administration Metronidazole 500 mg in 100 mls @ 100 mls/hr 06/23/19 18:00 06/27/19 09:45 Flagyl 500mg Premixed Ivpb - IVPB 100 mls/hr Q8H-IV [facility] Administration Ceftriaxone Sodium 1 gm/ 50 mls @ 200 mls/hr 06/24/19 10:00 06/27/19 09:45 Dextrose IVPB 200 mls/hr DAILY [facility] Administration Protocol Lisinopril 5 mg 06/25/19 10:00 06/27/19 09:44 Prinivil PO 5 mg DAILY [facility] Administration Mesalamine 800 mg 06/26/19 14:00 06/27/19 06:22 Asacol Hd - PO 800 mg TID LUIS Administration Methylprednisolone Sodium Succinate 40 mg 06/23/19 18:00 06/27/19 09:45 Solu-Medrol - IVPUSH 40 mg Q8H-IV [facility]IS Administration Pantoprazole Sodium 40 mg 06/25/19 10:00 06/27/19 09:44 Protonix - PO 40 mg DAILY [facility] Administration Tramadol HCl 50 mg 06/24/19 01:35 06/27/19 06:21 Ultram - PO 50 mg Q6H PRN Administration PAIN LEVEL 6-10 Trazodone HCl 100 mg 06/24/19 22:00 06/26/19 21:25 Desyrel - PO 100 mg HS LUIS Administration Microbiology 06/23/19 09:30 Blood - Peripheral Venous Blood Culture - Preliminary NO GROWTH OBTAINED AFTER 96 HOURS, INCUBATION TO CONTINUE FOR 1 DAYS. 06/23/19 09:20 Blood - Peripheral Venous Blood Culture - Preliminary NO GROWTH OBTAINED AFTER 96 HOURS, INCUBATION TO CONTINUE FOR 1 DAYS. 06/23/19 16:40 Stool Salmonella/Shigella Culture - Final Yeast Like Organism 06/23/19 16:40 Stool Campylobacter Culture - Final NO GROWTH OF CAMPYLOBACTER SPECIES OBTAINED 06/23/19 16:40 Stool Yersinia Culture - Final NO GROWTH OF YERSINIA SPECIES OBTAINED 06/23/19 16:40 Stool Vibrio Culture - Final NO GROWTH OF VIBRIO SPECIES OBTAINED 06/23/19 16:40 Stool Escherichia coli 0157 Culture - Final NO GROWTH OF E COLI 0157 OBTAINED 06/24/19 00:00 Urine - Urine Clean Catch Urine Culture - Final NO GROWTH OBTAINED 06/23/19 16:40 Stool Gram Stain - Final 06/23/19 16:40 Stool Clostridioides difficile Antigen - Final 06/23/19 16:40 Stool Clostridioides difficile Toxin Assay - Final Constitutional: Yes: No Distress, Calm Eyes: Yes: Conjunctiva Clear HENT: Yes: Atraumatic Cardiovascular: Yes: Regular Rate and Rhythm Respiratory: Yes: Regular, CTA Bilaterally Gastrointestinal: Yes: Normal Bowel Sounds, Soft, Tenderness (mild llq) Musculoskeletal: Yes: WNL Extremities: Yes: WNL Edema: No Neurological: Yes: Alert, Oriented Psychiatric: Yes: Alert, Oriented Labs: CBC, BMP 06/27/19 07:55 06/27/19 07:55 Discharge Summary Problems reviewed: Yes Reason For Visit: ULCERATIVE COLITIS,LACTIC ACIDOSIS Current Active Problems Arthritis (Acute) Lactic acidosis (Acute) Ulcerative colitis (Acute) Hospital Course: 63 year old female with PMH ulcerative colitis, chronic arthritis presented to ED for LLQ pain/Bloody diarrhea since 0200 today. Pt reported she believes her symptoms are 2/2 an UC flare up, and she tried to hydrate at home, but started vomiting and called EMS. Pt reported her LLQ pain is constant, cramping, no alleviating or aggravating factors. Pt reported she had many episodes of diarrhea, and when she stands up from the toilet she begins to feel lightheaded. She denied syncope or fall. She reported she takes percocet for her chronic arthritis. Stool was collected and stool culture, stool wbc neg. Stool neg for c-diff. She was started on IV antibiotics and responded well. Diarrhea has subsided and tolerating low fiber, lactose free diet. Condition: Stable - Instructions Diet, Activity, Other Instructions: Follow up with PMD in 1 week of discharge follow up with GI Dr Shelley 2 weeks post discharge continue with antibiotics as prescribed Flagyl 250mg tablet three times a day for 14 days continue with medication as prescribed return to ER if develop severe pain, respiratory distress, chest pain low fiber lactose free diet Referrals: Elvis Shelley MD [Staff Physician] - Juancho Frank MD [Primary Care Provider] - Disposition: HOME - Home Medications Comprehensive Discharge Medication List: Ambulatory Orders Alprazolam 0.125 mg PO HS 06/23/19 Lipase/Protease/Amylase [Zenpep Dr 25,000 Unit Capsule] 1 each PO TID 06/23/19 Lisinopril [Zestril] 40 mg PO DAILY 06/23/19 Mesalamine [Asacol HD -] 800 mg PO TID 06/23/19 Oxycodone HCl/Acetaminophen [Oxycodone-Acetaminophen 10-325] 1 each PO PRN 06/23 traZODone HCL [Trazodone HCl] 100 mg PO HS 06/23/19 Lisinopril [Prinivil] 5 mg PO DAILY tablet 06/27/19 Mesalamine [Asacol HD -] 800 mg PO TID tablet. 06/27/19 Pantoprazole Sodium [Protonix -] 40 mg PO DAILY #30 tablet.ec 06/27/19 metroNIDAZOLE [Flagyl -] 250 mg PO TID 14 Days #42 tablet 06/27/19
--- NOTE | 2019-06-27 16:15 | PN ---
Progress Note (short form) - Note Progress Note: coverage for Dr Echavarria patient noted to have a ill defined leson by MRI. No CBD stone. Was called by resident to clear patient for discharge Patient will need further gi w/u as an outpatient .She was made aware to follow -up as an outpatient Problem List - Problems (1) Ulcerative colitis Code(s): K51.90 - ULCERATIVE COLITIS, UNSPECIFIED, WITHOUT COMPLICATIONS
[2019-06-27] MEDS: SODIUM CHLORIDE 1,000 ML IV SCH (17:03)
[2019-06-27] MEDS: traZODone HCL 100 MG TABLET (FP) PO SCH (21:52)
[2019-06-27] MEDS: ALPRAZolam 0.25 MG TABLET PO SCH (21:53)
[2019-06-27 23:10] LABS: STOOL CHLORIDE 54 mmol/L (.); STOOL POTASSIUM 45 mmol/L (.); STOOL SODIUM 50 mmol/L (.)
[2019-06-28] MEDS: methylPREDNISolone NA SUCC 40 MG/1 ML VIAL IVPUSH SCH ×2 (01:20→09:40)
[2019-06-28] MEDS ORDERED: PT OWN MED DRAWER 7, Y5N ONE (05:52)
[2019-06-28] MEDS: MESALAMINE 800 MG TABLET.DR PO SCH (06:33)
[2019-06-28] MEDS ORDERED: cefTRIAXone SODIUM 1 GM VIAL ONE (08:50)
[2019-06-28] MEDS ORDERED: DEXTROSE 5%-WATER - 50 ML IVPB ONE (08:50)
[2019-06-28] MEDS: LISINOPRIL 5 MG TABLET (FP) PO SCH (09:39)
[2019-06-28] MEDS: PANTOPRAZOLE 40 MG TABLET (FP) PO SCH (09:39)
[2019-06-28] MEDS: CEFTRIAXONE 1 GM in DEXTROSE 5%-WATER - 50 ML IVPB SCH (09:39)
[2019-06-28 10:27] VITALS: BP 147/69; PULSE 74; TEMP 98.8
--- NOTE | 2019-06-28 10:43 | PN ---
Progress Note, Physician Chief Complaint: Ulcerative Colitis History of Present Illness: NAD, feels better than yesterday tolerating regular diet to be discharged on PO flagyl - Current Medication List Current Medications: Active Medications Acetaminophen (Tylenol -) 650 mg PO Q6H PRN PRN Reason: PAIN LEVEL 1-5 Last Admin: 06/26/19 21:26 Dose: 650 mg Alprazolam (Xanax -) 0.5 mg PO HS [facility] Last Admin: 06/27/19 21:53 Dose: 0.5 mg Sodium Chloride (Normal Saline -) 1,000 mls @ 100 mls/hr IV ASDIR LUIS Last Admin: 06/27/19 17:03 Dose: 100 mls/hr Metronidazole (Flagyl 500mg Premixed Ivpb -) 500 mg in 100 mls @ 100 mls/hr IVPB Q8H-IV [facility] Last Admin: 06/28/19 09:40 Dose: 100 mls/hr Ceftriaxone Sodium 1 gm/ (Dextrose) 50 mls @ 200 mls/hr IVPB DAILY [facility]; Protocol Last Admin: 06/28/19 09:39 Dose: 200 mls/hr Lisinopril (Prinivil) 5 mg PO DAILY [facility] Last Admin: 06/28/19 09:39 Dose: 5 mg Mesalamine (Asacol Hd -) 800 mg PO TID [facility] Last Admin: 06/28/19 06:33 Dose: 800 mg Methylprednisolone Sodium Succinate (Solu-Medrol -) 40 mg IVPUSH Q8H-IV [facility] Last Admin: 06/28/19 09:40 Dose: 40 mg Pantoprazole Sodium (Protonix -) 40 mg PO DAILY [facility] Last Admin: 06/28/19 09:39 Dose: 40 mg Trazodone HCl (Desyrel -) 100 mg PO HS [facility] Last Admin: 06/27/19 21:52 Dose: 100 mg - Objective Vital Signs: Vital Signs Temperature 98.8 F 06/28/19 10:00 Pulse Rate 74 06/28/19 10:00 Respiratory Rate 18 06/28/19 10:00 Blood Pressure 147/69 06/28/19 10:00 O2 Sat by Pulse Oximetry (%) 96 06/27/19 09:22 Constitutional: Yes: No Distress, Calm, Thin Cardiovascular: Yes: Regular Rate and Rhythm Respiratory: Yes: Regular Gastrointestinal: Yes: Normal Bowel Sounds, Soft Genitourinary: Yes: WNL Musculoskeletal: Yes: WNL Extremities: Yes: WNL Edema: No Peripheral Pulses WNL: Yes Neurological: Yes: Alert, Oriented Psychiatric: Yes: Alert, Oriented Labs: CBC, BMP 06/27/19 07:55 06/27/19 07:55 INR, PTT INR 1.02 (0.83-1.09) 06/23/19 09:20 Assessment/Plan (1) Ulcerative colitis Assessment/Plan: -Continue IVF -solumedrol q8rh -flagyl PO -stool cultures,OP, c diff- r/o infectious vs UC flare-pending -GI consult -pain control -regular diet -Add PPI Code(s): K51.90 - ULCERATIVE COLITIS, UNSPECIFIED, WITHOUT COMPLICATIONS (2) Lactic acidosis Assessment/Plan: -resolved with hydration Code(s): E87.2 - ACIDOSIS
== END 2019-06-28 13:07 | disposition home or self-care (01) | DRG 386 ==
LOC: JER 08:47 → JERBED 13:02 → J8W 15:30
PROVIDERS: ADMIT Student in an Organized Health Care Education/Training Program; ATTEND Student in an Organized Health Care Education/Training Program
DX: K51.90 Ulcerative colitis, unspecified, without complications (principal); E87.2 Acidosis; M19.90 Unspecified osteoarthritis, unspecified site; R10.32 Left lower quadrant pain
CPT/HCPCS: 36415; 71045-TC-FY; 74177-TC; 80053; 81003; 82272; 82438; 82746; 82803; 83605; 83690; 83735; 84100; 84302; 84484; 84999; 85025; 85027; 85610; 85651; 85730; 86850; 86900; 86901; 87040; 87045; 87046; 87077; 87086; 87177; 87205; 87209; 87324; 87350; 87449; 93005; 93010; 99284-25; J0131; J7030; Q9967

== ENCOUNTER 2020-10-03 05:43 | Day surgery (SDC) | payer OTHER ==
[2020-09-25 17:19] VITALS: BMI 22.2
[2020-10-03] MEDS ORDERED: ROPIVACAINE HCL 0.5% 30ML VIAL ONE (07:21)
[2020-10-03] MEDS ORDERED: MIDAZOLAM HCL 2 MG/2 ML SINGLE DOSE VIAL ONE (07:21)
[2020-10-03] MEDS ORDERED: DEXAMETHASONE SOD PHOSPHATE 10 MG/1 ML VIAL ONE (07:21)
[2020-10-03] MEDS ORDERED: PROPOFOL 20 ML ONE ×2 (07:25)
[2020-10-03] MEDS ORDERED: SUCCINYLCHOLINE CHLORIDE 200 MG/10 ML SYRINGE ONE (07:25)
[2020-10-03] MEDS ORDERED: ceFAZolin SODIUM 1 GM VIAL IVPB ONE (07:58)
[2020-10-03] MEDS ORDERED: ePHEDrine SULFATE 50 MG/1 ML AMPULE ONE (08:06)
[2020-10-03] MEDS ORDERED: ceFAZolin SODIUM 1 GM VIAL ONE (08:08)
[2020-10-03] MEDS ORDERED: PHENYLEPHRINE HCL 10 MG/1 ML SINGLE DOSE VIAL ONE ×2 (08:08)
[2020-10-03] MEDS ORDERED: DEXAMETHASONE SOD PHOSPHATE 4 MG/1 ML VIAL ONE (08:12)
[2020-10-03] MEDS ORDERED: ONDANSETRON 4 MG/2 ML VIAL ONE (08:12)
[2020-10-03] MEDS ORDERED: ONDANSETRON 4 MG/2 ML VIAL IVPUSH PRN (09:50)
[2020-10-03] MEDS ORDERED: oxyCODONE HCL 5 MG TABLET PO PRN (09:50)
[2020-10-03] MEDS ORDERED: LACTATED RINGERS SOLUTION 1,000 ML IV SCH (10:00)
[2020-10-03 11:38] VITALS: PULSE 72; TEMP 97.7
[2020-10-03 14:34] VITALS: BP 114/60
== END 2020-10-03 12:00 | disposition home or self-care (01) ==
LOC: FASU 05:43
PROVIDERS: ATTEND Orthopaedic Surgery
PROC: 0RNJ4ZZ Release Right Shoulder Joint, Percutaneous Endoscopic Approach (ICD-10-PCS; principal; 2020-10-03 08:00)
PROC: 0PB94ZZ Excision of Right Clavicle, Percutaneous Endoscopic Approach (ICD-10-PCS; 2020-10-03 08:00)
DX: M75.41 Impingement syndrome of right shoulder (principal); M75.01 Adhesive capsulitis of right shoulder; M19.011 Primary osteoarthritis, right shoulder
CPT/HCPCS: 94760; J1100

== ENCOUNTER 2021-01-24 11:39 | Emergency (ER) | payer OTHER ==
[2021-01-24 12:22] VITALS: BP 122/71; PULSE 76; TEMP 98.6; BMI 21.7
[2021-01-24] MEDS ORDERED: ACETAMINOPHEN 500 MG TABLET (FP) PO ONE (14:19)
[2021-01-24] MEDS ORDERED: ACETAMINOPHEN 500 MG TABLET (FP) ONE (14:24)
== END 2021-01-24 15:39 | disposition home or self-care (01) ==
LOC: JER 11:39 → JERFT 11:39
PROC: 099KXZZ Drainage of Nasal Mucosa and Soft Tissue, External Approach (ICD-10-PCS; principal; 2021-01-24)
DX: J34.0 Abscess, furuncle and carbuncle of nose (principal); L03.211 Cellulitis of face
CPT/HCPCS: 10060; 99283-25

== ENCOUNTER 2021-01-26 09:48 | Emergency (ER) | payer OTHER ==
[2021-01-26 09:55] VITALS: BP 124/76; PULSE 73; TEMP 98; BMI 22.6
== END 2021-01-26 10:56 | disposition home or self-care (01) ==
LOC: JERFT 09:48
DX: Z48.00 Encounter for change or removal of nonsurgical wound dressing (principal)
CPT/HCPCS: 99281-25

== ENCOUNTER 2021-04-11 04:28 | Day surgery (SDC) | payer OTHER ==
[2021-04-10 11:49] VITALS: BMI 23.0
[~2021-04-11 04:28] MED LIST: BUPIVACAINE HCL/PF 0.5% (5MG/ML) 10 ML VIAL IJ ONE
[2021-04-11] MEDS ORDERED: EPINEPHrine/PF 1 MG/1 ML (1:1,000) AMPULE ONE (09:51)
[2021-04-11 10:09] LABS: HEMATOCRIT 35.8 % (32.4-45.2); HEMOGLOBIN 12.4 GM/dL (10.7-15.3); MCH 32.9 pg (25.7-33.7); MCHC 34.6 g/dl (32.0-36.0); MEAN PLT VOLUME 8.3 fl (7.5-11.1); PLATELET COUNT 209 10^3/uL (134-434); RBC 3.77 M/mm3 (3.60-5.2); RDW 13.6 % (11.6-15.6); WHITE BLOOD COUNT 4.4 K/mm3 (4.0-10.0)
[2021-04-11 10:26] LABS: ALBUMIN 3.9 g/dl (3.4-5.0); BLOOD UREA NITROGEN 14.9 mg/dL (7-18); CALCIUM 9.1 mg/dL (8.5-10.1)
[2021-04-11 10:29] LABS: CREATININE 0.8 mg/dL (0.55-1.3)
[2021-04-11] MEDS ORDERED: MIDAZOLAM HCL 2 MG/2 ML SINGLE DOSE VIAL ONE (10:29)
[2021-04-11 10:31] LABS: BILIRUBIN,TOTAL 0.4 mg/dL (0.2-1); TOT PROT 7.2 g/dl (6.4-8.2)
[2021-04-11] MEDS ORDERED: LIDOCAINE HCL 1%, 10 MG/ML (20ML VIAL) INF ONE (10:45)
[2021-04-11] MEDS ORDERED: ceFAZolin SODIUM 1 GM VIAL IVPB ONE (10:45)
[2021-04-11] MEDS ORDERED: PROPOFOL 20 ML ONE (10:56)
[2021-04-11] MEDS ORDERED: BUPIVACAINE HCL/PF 0.5% (5MG/ML) 10 ML VIAL IJ ONE (12:05)
[2021-04-11] MEDS ORDERED: PROMETHAZINE HCL 25 MG/1 ML VIAL IVPB PRN (13:56)
[2021-04-11] MEDS ORDERED: LACTATED RINGERS SOLUTION 1,000 ML IV SCH (14:00)
[2021-04-11 15:54] VITALS: TEMP 97.6
[2021-04-11 17:11] VITALS: BP 132/67; PULSE 88
== END 2021-04-11 17:27 | disposition home or self-care (01) ==
LOC: JASU-SURG 04:28
PROVIDERS: ATTEND Podiatrist Foot Surgery
PROC: 0QSP04Z Reposition Left Metatarsal with Internal Fixation Device, Open Approach (ICD-10-PCS; principal; 2021-04-11 11:00)
PROC: 0QSP04Z Reposition Left Metatarsal with Internal Fixation Device, Open Approach (ICD-10-PCS; 2021-04-11 11:00)
DX: M20.12 Hallux valgus (acquired), left foot (principal); M20.42 Other hammer toe(s) (acquired), left foot
CPT/HCPCS: 28208; 28285; 28298; C1713; 36415; 76000-TC-FY; 80053; 85027; 94760

== ENCOUNTER 2021-06-14 11:46 | Emergency (ER) | payer OTHER ==
[2021-06-14 12:08] VITALS: BP 109/68; PULSE 80; TEMP 98.1; BMI 23.3
== END 2021-06-14 14:45 | disposition home or self-care (01) ==
LOC: JER 11:46
DX: R60.9 Edema, unspecified (principal)
CPT/HCPCS: 93971-TC; 99284-25